=== PATIENT | male | born 1960 | race African-American/Black ===

== ENCOUNTER 2016-11-06 21:37 | Inpatient (IN) | payer MEDICARE, MEDICAID ==
[~2016-11-06] VITALS: Ht 188 cm; Wt 224.5 kg
[2016-11-06 19:00] VITALS: BP 139/89
[2016-11-06 20:15] VITALS: BP 130/80
[2016-11-06] MEDS ORDERED: ACETAMINOPHEN 325MG TABLET PO PRN (22:45)
[2016-11-06] MEDS ORDERED: CARVEDILOL 25MG TABLET PO SCH (23:01)
[2016-11-06] MEDS ORDERED: NA PHOS,M-B/NA PHOS,DI-BA ENEMA 118ML PR PRN (23:15)
[2016-11-06] MEDS ORDERED: ONDANSETRON HCL 4MG TABLET PO PRN (23:15)
[2016-11-06] MEDS ORDERED: NON FORMULARY PATIENT HOME MED EA XX SCH (23:30)
[2016-11-06] MEDS ORDERED: ZOLPIDEM TARTRATE 5MG TABLET PO PRN (23:30)
[2016-11-07] MEDS ORDERED: DILTIAZEM HCL 30MG TABLET PO PRN (00:38)
[2016-11-07] MEDS ORDERED: HYDRALAZINE HCL 10MG TABLET PO PRN (00:39)
[2016-11-07] MEDS ORDERED: DEXTROSE 50% WATER 50ML SYRINGE IV PRN (00:43)
[2016-11-07] MEDS ORDERED: POLYETHYLENE GLYCOL 3350 (17GM) 1 DOSE PACK PO PRN (01:00)
[2016-11-07] MEDS: BLOOD SUGAR DIAGNOSTIC STRIP TEST SCH ×4 (06:29→21:00)
[2016-11-07] MEDS: SUCRALFATE 1G TABLET PO SCH ×4 (06:30→22:17)
[2016-11-07] MEDS: INSULIN LISPRO 100 UNITS/ML SUBCUT SCH ×4 (06:33→22:26)
[2016-11-07 06:48] LABS: HEMATOCRIT. 28.5 % (42.0-52.0); HEMOGLOBIN. 8.9 g/dL (14.0-18.0); MEAN CORPUSCULAR HEMOGLOBIN 24.3 pg (28.0-32.0); MEAN CORPUSCULAR VOLUME 78.3 fL (80.0-94.0); MEAN PLATELET VOLUME 8.1 fl (7.4-10.4); PLATELET 319 x1000/uL (130-400); RED BLOOD CELL COUNT 3.64 mill/uL (4.7-6.1)
[2016-11-07 07:18] LABS: CARBON DIOXIDE 35 mEq/L (21-32); CHLORIDE 98 mEq/L (98-107)
[2016-11-07 07:21] LABS: PREALBUMIN 10.7 mg/dL (20.0-40.0)
[2016-11-07 08:18] VITALS: BP 169/97
[2016-11-07] MEDS ORDERED: LISINOPRIL 10MG TABLET PO SCH (09:00)
[2016-11-07] MEDS ORDERED: APIXABAN 5 MG TABLET PO SCH (09:00)
[2016-11-07] MEDS: AMIODARONE HCL 200 MG TABLET PO SCH ×2 (09:55→22:18)
[2016-11-07] MEDS: MAGNESIUM OXIDE 400MG TABLET PO SCH (09:56)
[2016-11-07] MEDS: FUROSEMIDE 40MG TABLET PO SCH ×2 (09:56→18:56)
[2016-11-07] MEDS: SPIRONOLACTONE 25MG TABLET PO SCH (09:56)
[2016-11-07] MEDS: CARVEDILOL 25MG TABLET PO SCH ×2 (09:56→22:18)
[2016-11-07] MEDS: LIDOCAINE 5% PATCH TOP SCH (10:12)
[2016-11-07] MEDS: HYDROCODONE/ACETAMINOPHEN 5/325MG TABLET PO PRN (10:17)
[2016-11-07] MEDS ORDERED: IPRATROPIUM/ALBUTEROL 0.5-3(2.5)MG/3ML NEB HHN PRN (13:30)
[2016-11-07] MEDS ORDERED: ALPRAZOLAM 0.5 MG TABLET PO PRN (13:30)
[2016-11-07 15:28] LABS: BG BASE EXCESS 7.6 mmol/L (-2.0-2.0); BG CARBOXYHEMOGLOBIN 0.1 % (0.5-1.5); BG DEOXYHEMOGLOBIN 6.3 % (0.0-5.0); BG FRACTION INSPIRED OXYGEN 28; BG HCO3 ACT 34.1 mmol/L (22.0-26.0); BG METHEMOGLOBIN 0.3 % (0.0-1.5); BG OXYGEN SATURATION 93.7 % (92.0-98.5); BG OXYHEMOGLOBIN 93.3 % (94.0-97.0); BG PCO2 59.2 mmHg (35.0-45.0); BG PH 7.378 (7.350-7.450); BG PO2 74.7 mmHg (75.0-100.0); BG SAMPLE SITE LEFT RADIAL; BG TOTAL HEMOGLOBIN 9.9 g/dL (12.0-18.0); BG VENT MODE NASAL CANNULA
[2016-11-07 16:56] LABS: PLATELET ESTIMATE NORMAL
[2016-11-07] MEDS: APIXABAN 5 MG TABLET PO SCH (18:55)
[2016-11-07 20:00] VITALS: BP 161/98
[2016-11-07] MEDS: IPRATROPIUM/ALBUTEROL 0.5-3(2.5)MG/3ML NEB HHN SCH (21:29)
[2016-11-07] MEDS: BUDESONIDE 0.5MG/2ML NEB HHN SCH (21:29)
[2016-11-07] MEDS: LISINOPRIL 20MG TABLET PO SCH (22:17)
[2016-11-07] MEDS: RISPERIDONE 0.5MG TABLET PO SCH (22:18)
[2016-11-07] MEDS: INSULIN DETEMIR UD 100 UNITS/ML SYR SUBCUT SCH (22:27)
[2016-11-08] MEDS: IPRATROPIUM/ALBUTEROL 0.5-3(2.5)MG/3ML NEB HHN SCH ×4 (01:49→20:29)
[2016-11-08] MEDS: BLOOD SUGAR DIAGNOSTIC STRIP TEST SCH ×4 (05:31→21:57)
[2016-11-08] MEDS: SUCRALFATE 1G TABLET PO SCH ×4 (05:35→21:53)
[2016-11-08] MEDS: PANTOPRAZOLE 40MG DR TABLET PO SCH (05:35)
[2016-11-08 07:08] LABS: BASOPHILS % 1.5 % (0.0-2.0); EOSINOPHILS % 4.9 % (0.0-5.0); HEMATOCRIT. 27.3 % (42.0-52.0); HEMOGLOBIN. 8.6 g/dL (14.0-18.0); LYMPHOCYTES % 31.3 % (20.0-50.0); MEAN CORPUSCULAR HEMOGLOBIN 24.3 pg (28.0-32.0); MONOCYTES % 14.4 % (2.0-8.0); NEUTROPHILS % 47.9 % (40.0-76.0); PLATELET 300 x1000/uL (130-400); RED BLOOD CELL COUNT 3.54 mill/uL (4.7-6.1); RED CELL DISTRIBUTION WIDTH 19.1 % (11.6-14.6)
[2016-11-08] MEDS: INSULIN LISPRO 100 UNITS/ML SUBCUT SCH ×4 (07:09→21:56)
[2016-11-08 07:19] LABS: CARBON DIOXIDE 35 mEq/L (21-32); CHLORIDE 100 mEq/L (98-107); TOTAL IRON BINDING CAPACITY 349 ug/dL (250-450)
[2016-11-08 08:00] VITALS: BP 157/96
[2016-11-08] MEDS: LISINOPRIL 20MG TABLET PO SCH ×2 (08:39→21:53)
[2016-11-08] MEDS: MAGNESIUM OXIDE 400MG TABLET PO SCH (08:40)
[2016-11-08] MEDS: APIXABAN 5 MG TABLET PO SCH ×2 (08:40→17:32)
[2016-11-08] MEDS: FUROSEMIDE 40MG TABLET PO SCH ×2 (08:40→17:32)
[2016-11-08] MEDS: AMIODARONE HCL 200 MG TABLET PO SCH ×2 (08:41→21:53)
[2016-11-08] MEDS: CARVEDILOL 25MG TABLET PO SCH ×2 (08:41→21:53)
[2016-11-08] MEDS: SPIRONOLACTONE 25MG TABLET PO SCH (08:41)
[2016-11-08] MEDS: LIDOCAINE 5% PATCH TOP SCH (08:43)
[2016-11-08] MEDS: BUDESONIDE 0.5MG/2ML NEB HHN SCH ×2 (12:16→20:29)
[2016-11-08] MEDS: FERROUS SULFATE 325MG TABLET PO SCH ×2 (12:57→17:32)
[2016-11-08 20:00] VITALS: BP 177/96
[2016-11-08] MEDS: RISPERIDONE 0.5MG TABLET PO SCH (21:53)
[2016-11-08] MEDS: INSULIN DETEMIR UD 100 UNITS/ML SYR SUBCUT SCH (21:57)
[2016-11-08 22:35] VITALS: BP 159/94
[2016-11-08] MEDS: HYDROCODONE/ACETAMINOPHEN 5/325MG TABLET PO PRN (22:35)
[2016-11-09] MEDS: IPRATROPIUM/ALBUTEROL 0.5-3(2.5)MG/3ML NEB HHN SCH ×4 (03:01→21:02)
[2016-11-09] MEDS: PANTOPRAZOLE 40MG DR TABLET PO SCH (06:12)
[2016-11-09] MEDS: SUCRALFATE 1G TABLET PO SCH ×4 (06:12→22:00)
[2016-11-09] MEDS: BLOOD SUGAR DIAGNOSTIC STRIP TEST SCH ×4 (06:39→21:00)
[2016-11-09] MEDS: BUDESONIDE 0.5MG/2ML NEB HHN SCH ×2 (07:22→21:02)
[2016-11-09] MEDS: INSULIN LISPRO 100 UNITS/ML SUBCUT SCH ×4 (07:24→22:02)
[2016-11-09 08:00] VITALS: BP 141/96
[2016-11-09 08:03] LABS: HEMATOCRIT. 28.8 % (42.0-52.0); HEMOGLOBIN. 8.9 g/dL (14.0-18.0); MEAN CORPUSCULAR VOLUME 77.3 fL (80.0-94.0); MEAN PLATELET VOLUME 8.1 fl (7.4-10.4); PLATELET 300 x1000/uL (130-400); RED BLOOD CELL COUNT 3.73 mill/uL (4.7-6.1); RED CELL DISTRIBUTION WIDTH 19.2 % (11.6-14.6)
[2016-11-09 08:07] LABS: CARBON DIOXIDE 36 mEq/L (21-32); CHLORIDE 99 mEq/L (98-107); HDL CHOLESTEROL 34 mg/dL (40-59); LDL CHOLESTEROL 34 mg/dL (5-100); PHOSPHORUS 4.8 mg/dL (2.5-4.9)
[2016-11-09] MEDS: LISINOPRIL 20MG TABLET PO SCH ×2 (08:50→22:00)
[2016-11-09] MEDS: FUROSEMIDE 40MG TABLET PO SCH ×2 (08:50→17:43)
[2016-11-09] MEDS: SPIRONOLACTONE 25MG TABLET PO SCH (08:50)
[2016-11-09] MEDS: MAGNESIUM OXIDE 400MG TABLET PO SCH (08:51)
[2016-11-09] MEDS: CARVEDILOL 25MG TABLET PO SCH ×2 (08:51→22:00)
[2016-11-09] MEDS: APIXABAN 5 MG TABLET PO SCH ×2 (08:51→17:43)
[2016-11-09] MEDS: AMIODARONE HCL 200 MG TABLET PO SCH ×2 (08:51→22:00)
[2016-11-09] MEDS: LIDOCAINE 5% PATCH TOP SCH ×2 (08:54→08:55)
[2016-11-09] MEDS ORDERED: IRON SUCROSE COMPLEX 100 MG in SODIUM CHLORIDE 0.9% 100 ML IV SCH (09:00)
[2016-11-09] MEDS: AMLODIPINE 2.5MG TABLET PO SCH (09:04)
[2016-11-09 09:05] LABS: FOLIC ACID (FOLATE) SERUM 8.3 ng/mL (>5.38)
[2016-11-09 09:41] LABS: PROSTRATE SPECIFIC AG TOTAL 1.7 ng/mL (0.0-4.0)
[2016-11-09 09:48] LABS: BG BASE EXCESS 3.1 mmol/L (-2.0-2.0); BG CARBOXYHEMOGLOBIN 0.6 % (0.5-1.5); BG DEOXYHEMOGLOBIN 7.3 % (0.0-5.0); BG FRACTION INSPIRED OXYGEN 21; BG HCO3 ACT 29.1 mmol/L (22.0-26.0); BG METHEMOGLOBIN 0.2 % (0.0-1.5); BG OXYGEN SATURATION 92.6 % (92.0-98.5); BG OXYHEMOGLOBIN 91.9 % (94.0-97.0); BG PH 7.366 (7.350-7.450); BG PO2 71.8 mmHg (75.0-100.0); BG SAMPLE SITE RIGHT RADIAL; BG TOTAL HEMOGLOBIN 9.7 g/dL (12.0-18.0); BG VENT MODE ROOM AIR
[2016-11-09 10:56] LABS: PLATELET ESTIMATE NORMAL
[2016-11-09] MEDS: HYDROCODONE/ACETAMINOPHEN 5/325MG TABLET PO PRN (11:55)
[2016-11-09 20:00] VITALS: BP 159/101
[2016-11-09] MEDS: RISPERIDONE 0.5MG TABLET PO SCH (22:00)
[2016-11-09] MEDS: IRON SUCROSE COMPLEX 100 MG in SODIUM CHLORIDE 0.9% 100 ML IV SCH (22:01)
[2016-11-09] MEDS: INSULIN DETEMIR UD 100 UNITS/ML SYR SUBCUT SCH (22:03)
[2016-11-10] MEDS: IPRATROPIUM/ALBUTEROL 0.5-3(2.5)MG/3ML NEB HHN SCH ×5 (01:27→20:16)
[2016-11-10] MEDS: HYDROCODONE/ACETAMINOPHEN 5/325MG TABLET PO PRN ×3 (03:58→15:35)
[2016-11-10] MEDS: PANTOPRAZOLE 40MG DR TABLET PO SCH (06:29)
[2016-11-10] MEDS: SUCRALFATE 1G TABLET PO SCH ×4 (06:29→22:01)
[2016-11-10] MEDS: BLOOD SUGAR DIAGNOSTIC STRIP TEST SCH ×4 (06:29→21:00)
[2016-11-10 08:00] VITALS: BP 149/86
[2016-11-10] MEDS: INSULIN LISPRO 100 UNITS/ML SUBCUT SCH ×4 (09:00→22:19)
[2016-11-10] MEDS: BUDESONIDE 0.5MG/2ML NEB HHN SCH (09:10)
[2016-11-10] MEDS: SPIRONOLACTONE 25MG TABLET PO SCH (09:30)
[2016-11-10] MEDS: CARVEDILOL 25MG TABLET PO SCH ×2 (09:31→22:02)
[2016-11-10] MEDS: AMLODIPINE 2.5MG TABLET PO SCH ×2 (09:31→22:00)
[2016-11-10] MEDS: APIXABAN 5 MG TABLET PO SCH ×2 (09:31→16:51)
[2016-11-10] MEDS: FUROSEMIDE 40MG TABLET PO SCH ×2 (09:31→16:51)
[2016-11-10] MEDS: AMIODARONE HCL 200 MG TABLET PO SCH ×2 (09:31→22:01)
[2016-11-10] MEDS: LISINOPRIL 20MG TABLET PO SCH ×2 (09:31→22:02)
[2016-11-10] MEDS: MAGNESIUM OXIDE 400MG TABLET PO SCH (09:31)
[2016-11-10] MEDS: LIDOCAINE 5% PATCH TOP SCH ×2 (09:32→09:33)
[2016-11-10] MEDS: TERBINAFINE HCL 1% CREAM 30GM TOP SCH (16:51)
[2016-11-10 20:00] VITALS: BP 174/87
[2016-11-10] MEDS: RISPERIDONE 0.5MG TABLET PO SCH (22:01)
[2016-11-10] MEDS: IRON SUCROSE COMPLEX 100 MG in SODIUM CHLORIDE 0.9% 100 ML IV SCH (22:03)
[2016-11-10] MEDS: INSULIN DETEMIR UD 100 UNITS/ML SYR SUBCUT SCH (22:21)
[2016-11-11] MEDS: IPRATROPIUM/ALBUTEROL 0.5-3(2.5)MG/3ML NEB HHN SCH ×4 (02:16→20:35)
[2016-11-11] MEDS: PANTOPRAZOLE 40MG DR TABLET PO SCH (06:15)
[2016-11-11] MEDS: SUCRALFATE 1G TABLET PO SCH ×4 (06:15→21:00)
[2016-11-11] MEDS: BLOOD SUGAR DIAGNOSTIC STRIP TEST SCH ×4 (06:16→21:01)
[2016-11-11] MEDS: HYDROCODONE/ACETAMINOPHEN 5/325MG TABLET PO PRN (07:34)
[2016-11-11 08:00] VITALS: BP 142/82
[2016-11-11 08:04] LABS: HEMATOCRIT. 28.2 % (42.0-52.0); HEMOGLOBIN. 8.7 g/dL (14.0-18.0); MEAN CORPUSCULAR VOLUME 77.6 fL (80.0-94.0); MEAN PLATELET VOLUME 8.2 fl (7.4-10.4); PLATELET 298 x1000/uL (130-400); RED BLOOD CELL COUNT 3.63 mill/uL (4.7-6.1); RED CELL DISTRIBUTION WIDTH 19.2 % (11.6-14.6)
[2016-11-11 08:36] LABS: CARBON DIOXIDE 34 mEq/L (21-32); CHLORIDE 99 mEq/L (98-107)
[2016-11-11] MEDS: INSULIN LISPRO 100 UNITS/ML SUBCUT SCH ×4 (09:00→21:15)
[2016-11-11] MEDS: SPIRONOLACTONE 25MG TABLET PO SCH (09:07)
[2016-11-11] MEDS: FUROSEMIDE 40MG TABLET PO SCH ×2 (09:08→17:07)
[2016-11-11] MEDS: AMLODIPINE 2.5MG TABLET PO SCH ×2 (09:08→21:00)
[2016-11-11] MEDS: AMIODARONE HCL 200 MG TABLET PO SCH ×2 (09:08→21:00)
[2016-11-11] MEDS: CARVEDILOL 25MG TABLET PO SCH ×2 (09:08→22:28)
[2016-11-11] MEDS: APIXABAN 5 MG TABLET PO SCH ×2 (09:08→17:06)
[2016-11-11] MEDS: LISINOPRIL 20MG TABLET PO SCH ×2 (09:09→21:00)
[2016-11-11] MEDS: MAGNESIUM OXIDE 400MG TABLET PO SCH (09:09)
[2016-11-11] MEDS: TERBINAFINE HCL 1% CREAM 30GM TOP SCH ×2 (09:11→17:06)
[2016-11-11] MEDS: LIDOCAINE 5% PATCH TOP SCH ×2 (09:12→09:13)
[2016-11-11 10:01] LABS: PLATELET ESTIMATE NORMAL
[2016-11-11] MEDS: CYANOCOBALAMIN 1000MCG/ML VIAL IM SCH (11:58)
[2016-11-11 20:56] VITALS: BP 141/93
[2016-11-11] MEDS: RISPERIDONE 0.5MG TABLET PO SCH (21:00)
[2016-11-11] MEDS: IRON SUCROSE COMPLEX 100 MG in SODIUM CHLORIDE 0.9% 100 ML IV SCH (21:14)
[2016-11-11] MEDS: INSULIN DETEMIR UD 100 UNITS/ML SYR SUBCUT SCH (21:17)
[2016-11-12] MEDS: IPRATROPIUM/ALBUTEROL 0.5-3(2.5)MG/3ML NEB HHN SCH ×4 (01:30→20:54)
[2016-11-12] MEDS ORDERED: HYDROCODONE/ACETAMINOPHEN 5/325MG TABLET PO PRN (02:45)
[2016-11-12] MEDS ORDERED: ALPRAZOLAM 0.5 MG TABLET PO PRN (05:30)
[2016-11-12] MEDS: INSULIN LISPRO 100 UNITS/ML SUBCUT SCH ×4 (05:51→21:00)
[2016-11-12] MEDS: BLOOD SUGAR DIAGNOSTIC STRIP TEST SCH ×4 (05:51→21:00)
[2016-11-12] MEDS: PANTOPRAZOLE 40MG DR TABLET PO SCH (05:58)
[2016-11-12] MEDS: SUCRALFATE 1G TABLET PO SCH ×4 (05:58→22:18)
[2016-11-12 07:34] VITALS: BP 162/101
[2016-11-12 08:00] VITALS: BP 162/101
[2016-11-12] MEDS: MAGNESIUM OXIDE 400MG TABLET PO SCH (09:53)
[2016-11-12] MEDS: FUROSEMIDE 40MG TABLET PO SCH ×2 (09:53→16:47)
[2016-11-12] MEDS: AMIODARONE HCL 200 MG TABLET PO SCH ×2 (09:53→22:21)
[2016-11-12] MEDS: APIXABAN 5 MG TABLET PO SCH ×2 (09:53→16:47)
[2016-11-12] MEDS: LISINOPRIL 20MG TABLET PO SCH ×2 (09:54→22:22)
[2016-11-12] MEDS: CARVEDILOL 25MG TABLET PO SCH ×2 (09:54→22:20)
[2016-11-12] MEDS: AMLODIPINE 2.5MG TABLET PO SCH (09:54)
[2016-11-12] MEDS: SPIRONOLACTONE 25MG TABLET PO SCH (09:54)
[2016-11-12] MEDS: CYANOCOBALAMIN 1000MCG/ML VIAL IM SCH (09:54)
[2016-11-12] MEDS: TERBINAFINE HCL 1% CREAM 30GM TOP SCH ×2 (09:56→16:47)
[2016-11-12] MEDS: LIDOCAINE 5% PATCH TOP SCH ×2 (09:57→09:58)
[2016-11-12] MEDS: HYDROCODONE/ACETAMINOPHEN 5/325MG TABLET PO PRN ×2 (10:00→16:50)
[2016-11-12] MEDS: DOCUSATE SODIUM 100MG CAPSULE PO PRN (10:11)
[2016-11-12 16:30] VITALS: BP 160/92
[2016-11-12 17:12] LABS: 25-HYDROXY VITAMIN D3 3.3 ng/mL (.)
[2016-11-12 20:00] VITALS: BP 130/74
[2016-11-12] MEDS: RISPERIDONE 0.5MG TABLET PO SCH (22:17)
[2016-11-12] MEDS: IRON SUCROSE COMPLEX 100 MG in SODIUM CHLORIDE 0.9% 100 ML IV SCH (22:17)
[2016-11-12] MEDS: AMLODIPINE 5MG TABLET PO SCH (22:19)
[2016-11-12] MEDS: INSULIN DETEMIR UD 100 UNITS/ML SYR SUBCUT SCH (22:36)
[2016-11-13] MEDS: IPRATROPIUM/ALBUTEROL 0.5-3(2.5)MG/3ML NEB HHN SCH ×4 (02:14→21:15)
[2016-11-13] MEDS: BLOOD SUGAR DIAGNOSTIC STRIP TEST SCH ×4 (05:49→21:59)
[2016-11-13] MEDS: SUCRALFATE 1G TABLET PO SCH ×4 (06:02→21:57)
[2016-11-13] MEDS: PANTOPRAZOLE 40MG DR TABLET PO SCH (06:02)
[2016-11-13] MEDS: INSULIN LISPRO 100 UNITS/ML SUBCUT SCH ×4 (06:07→21:00)
[2016-11-13 08:01] VITALS: BP 136/84
[2016-11-13] MEDS: CYANOCOBALAMIN 1000MCG/ML VIAL IM SCH (10:07)
[2016-11-13] MEDS: AMIODARONE HCL 200 MG TABLET PO SCH ×2 (10:07→21:57)
[2016-11-13] MEDS: CARVEDILOL 25MG TABLET PO SCH ×2 (10:08→21:58)
[2016-11-13] MEDS: MAGNESIUM OXIDE 400MG TABLET PO SCH (10:09)
[2016-11-13] MEDS: SPIRONOLACTONE 25MG TABLET PO SCH (10:09)
[2016-11-13] MEDS: FUROSEMIDE 40MG TABLET PO SCH ×2 (10:09→16:40)
[2016-11-13] MEDS: AMLODIPINE 5MG TABLET PO SCH ×2 (10:10→22:01)
[2016-11-13] MEDS: APIXABAN 5 MG TABLET PO SCH ×2 (10:10→16:40)
[2016-11-13] MEDS: LISINOPRIL 20MG TABLET PO SCH ×2 (10:10→21:58)
[2016-11-13] MEDS: LIDOCAINE 5% PATCH TOP SCH ×2 (10:12)
[2016-11-13] MEDS: TERBINAFINE HCL 1% CREAM 30GM TOP SCH ×2 (10:21→16:48)
[2016-11-13 13:50] LABS: BASOPHILS % 1.3 % (0.0-2.0); EOSINOPHILS % 5.6 % (0.0-5.0); HEMATOCRIT. 30.1 % (42.0-52.0); HEMOGLOBIN. 9.2 g/dL (14.0-18.0); LYMPHOCYTES % 22.9 % (20.0-50.0); MEAN CORPUSCULAR HEMOGLOBIN 23.9 pg (28.0-32.0); MEAN CORPUSCULAR VOLUME 78.8 fL (80.0-94.0); MONOCYTES % 9.4 % (2.0-8.0); NEUTROPHILS % 60.8 % (40.0-76.0); PLATELET 275 x1000/uL (130-400); RED BLOOD CELL COUNT 3.83 mill/uL (4.7-6.1); RED CELL DISTRIBUTION WIDTH 19.7 % (11.6-14.6)
[2016-11-13 14:23] LABS: CARBON DIOXIDE 35 mEq/L (21-32); CHLORIDE 97 mEq/L (98-107)
[2016-11-13 19:00] VITALS: BP 131/92
[2016-11-13] MEDS ORDERED: IRON SUCROSE COMPLEX 100 MG/5 ML ML IV ONE (21:21)
[2016-11-13] MEDS: IRON SUCROSE COMPLEX 100 MG in SODIUM CHLORIDE 0.9% 100 ML IV SCH (22:00)
[2016-11-13] MEDS: RISPERIDONE 0.5MG TABLET PO SCH (22:01)
[2016-11-13] MEDS: INSULIN DETEMIR UD 100 UNITS/ML SYR SUBCUT SCH (22:11)
[2016-11-14] MEDS: IPRATROPIUM/ALBUTEROL 0.5-3(2.5)MG/3ML NEB HHN SCH ×4 (01:18→21:01)
[2016-11-14] MEDS: PANTOPRAZOLE 40MG DR TABLET PO SCH (06:23)
[2016-11-14] MEDS: SUCRALFATE 1G TABLET PO SCH ×4 (06:23→20:32)
[2016-11-14] MEDS: BLOOD SUGAR DIAGNOSTIC STRIP TEST SCH ×4 (06:30→21:00)
[2016-11-14 07:00] VITALS: BP 156/85
[2016-11-14 07:13] LABS: BASOPHILS % 1.3 % (0.0-2.0); EOSINOPHILS % 6.9 % (0.0-5.0); HEMATOCRIT. 29.9 % (42.0-52.0); HEMOGLOBIN. 9.3 g/dL (14.0-18.0); LYMPHOCYTES % 24.6 % (20.0-50.0); MEAN CORPUSCULAR HEMOGLOBIN 24.4 pg (28.0-32.0); MEAN CORPUSCULAR VOLUME 78.6 fL (80.0-94.0); MONOCYTES % 13.2 % (2.0-8.0); PLATELET 280 x1000/uL (130-400); RED BLOOD CELL COUNT 3.81 mill/uL (4.7-6.1); RED CELL DISTRIBUTION WIDTH 20.1 % (11.6-14.6)
[2016-11-14 07:33] LABS: CARBON DIOXIDE 36 mEq/L (21-32); CHLORIDE 100 mEq/L (98-107)
[2016-11-14] MEDS: INSULIN LISPRO 100 UNITS/ML SUBCUT SCH ×4 (07:41→22:48)
[2016-11-14] MEDS: AMIODARONE HCL 200 MG TABLET PO SCH ×2 (09:12→20:34)
[2016-11-14] MEDS: CARVEDILOL 25MG TABLET PO SCH ×2 (09:12→20:33)
[2016-11-14] MEDS: AMLODIPINE 5MG TABLET PO SCH ×2 (09:12→20:34)
[2016-11-14] MEDS: LISINOPRIL 20MG TABLET PO SCH ×2 (09:12→22:42)
[2016-11-14] MEDS: MAGNESIUM OXIDE 400MG TABLET PO SCH (09:13)
[2016-11-14] MEDS: CYANOCOBALAMIN 1000MCG/ML VIAL IM SCH (09:13)
[2016-11-14] MEDS: SPIRONOLACTONE 25MG TABLET PO SCH (09:13)
[2016-11-14] MEDS: TERBINAFINE HCL 1% CREAM 30GM TOP SCH ×2 (09:14→17:06)
[2016-11-14] MEDS: APIXABAN 5 MG TABLET PO SCH ×2 (09:18→17:05)
[2016-11-14] MEDS: FUROSEMIDE 40MG TABLET PO SCH ×2 (09:18→17:05)
[2016-11-14] MEDS: LIDOCAINE 5% PATCH TOP SCH ×2 (09:20)
[2016-11-14 20:00] VITALS: BP 170/88
[2016-11-14] MEDS: RISPERIDONE 0.5MG TABLET PO SCH (20:34)
[2016-11-14] MEDS: INSULIN DETEMIR UD 100 UNITS/ML SYR SUBCUT SCH (22:49)
[2016-11-15] VITALS: BP 138/80
[2016-11-15] MEDS: IPRATROPIUM/ALBUTEROL 0.5-3(2.5)MG/3ML NEB HHN SCH ×3 (00:40→20:53)
[2016-11-15] MEDS: PANTOPRAZOLE 40MG DR TABLET PO SCH (06:23)
[2016-11-15] MEDS: SUCRALFATE 1G TABLET PO SCH ×4 (06:23→22:12)
[2016-11-15] MEDS: BLOOD SUGAR DIAGNOSTIC STRIP TEST SCH ×4 (06:24→21:00)
[2016-11-15 07:42] VITALS: BP 164/92
[2016-11-15] MEDS: INSULIN LISPRO 100 UNITS/ML SUBCUT SCH ×4 (09:00→21:00)
[2016-11-15] MEDS: APIXABAN 5 MG TABLET PO SCH ×2 (10:17→17:45)
[2016-11-15] MEDS: LISINOPRIL 20MG TABLET PO SCH ×2 (10:17→22:13)
[2016-11-15] MEDS: FUROSEMIDE 40MG TABLET PO SCH ×2 (10:18→17:45)
[2016-11-15] MEDS: AMLODIPINE 5MG TABLET PO SCH ×2 (10:19→22:13)
[2016-11-15] MEDS: SPIRONOLACTONE 25MG TABLET PO SCH (10:20)
[2016-11-15] MEDS: AMIODARONE HCL 200 MG TABLET PO SCH ×2 (10:20→22:12)
[2016-11-15] MEDS: CARVEDILOL 25MG TABLET PO SCH ×2 (10:20→22:13)
[2016-11-15] MEDS: MAGNESIUM OXIDE 400MG TABLET PO SCH (10:21)
[2016-11-15] MEDS: LIDOCAINE 5% PATCH TOP SCH ×2 (10:22→12:24)
[2016-11-15] MEDS: TERBINAFINE HCL 1% CREAM 30GM TOP SCH ×2 (12:18→17:47)
[2016-11-15] MEDS: HYDRALAZINE HCL 50MG TABLET PO SCH ×2 (15:56→23:44)
[2016-11-15] MEDS: DOCUSATE SODIUM 100MG CAPSULE PO PRN (17:45)
[2016-11-15 20:00] VITALS: BP 147/87
[2016-11-15] MEDS: RISPERIDONE 0.5MG TABLET PO SCH (22:13)
[2016-11-15] MEDS: INSULIN DETEMIR UD 100 UNITS/ML SYR SUBCUT SCH (22:35)
[2016-11-16] MEDS: IPRATROPIUM/ALBUTEROL 0.5-3(2.5)MG/3ML NEB HHN SCH ×4 (02:15→21:51)
[2016-11-16] MEDS: SUCRALFATE 1G TABLET PO SCH ×4 (06:09→21:53)
[2016-11-16] MEDS: HYDRALAZINE HCL 50MG TABLET PO SCH ×3 (06:10→23:39)
[2016-11-16] MEDS: BLOOD SUGAR DIAGNOSTIC STRIP TEST SCH ×4 (06:10→21:51)
[2016-11-16] MEDS: PANTOPRAZOLE 40MG DR TABLET PO SCH (06:10)
[2016-11-16 08:30] VITALS: BP 152/88
[2016-11-16] MEDS: INSULIN LISPRO 100 UNITS/ML SUBCUT SCH ×4 (09:00→22:00)
[2016-11-16] MEDS: MAGNESIUM OXIDE 400MG TABLET PO SCH (09:00)
[2016-11-16] MEDS: AMLODIPINE 5MG TABLET PO SCH ×2 (09:26→21:53)
[2016-11-16] MEDS: CARVEDILOL 25MG TABLET PO SCH ×2 (09:26→21:56)
[2016-11-16] MEDS: LISINOPRIL 20MG TABLET PO SCH ×2 (09:26→21:52)
[2016-11-16] MEDS: ERGOCALCIFEROL 50000UNITS CAPSULE PO SCH (09:26)
[2016-11-16] MEDS: SPIRONOLACTONE 25MG TABLET PO SCH (09:27)
[2016-11-16] MEDS: APIXABAN 5 MG TABLET PO SCH ×2 (09:27→16:32)
[2016-11-16] MEDS: FUROSEMIDE 40MG TABLET PO SCH ×2 (09:27→16:33)
[2016-11-16] MEDS: AMIODARONE HCL 200 MG TABLET PO SCH ×2 (09:27→21:52)
[2016-11-16] MEDS: LIDOCAINE 5% PATCH TOP SCH ×2 (09:29)
[2016-11-16] MEDS: TERBINAFINE HCL 1% CREAM 30GM TOP SCH ×2 (11:46→16:28)
[2016-11-16 20:00] VITALS: BP 145/96
[2016-11-16] MEDS: RISPERIDONE 0.5MG TABLET PO SCH (21:53)
[2016-11-16] MEDS: INSULIN DETEMIR UD 100 UNITS/ML SYR SUBCUT SCH (22:01)
[2016-11-17] MEDS: IPRATROPIUM/ALBUTEROL 0.5-3(2.5)MG/3ML NEB HHN SCH ×4 (02:58→21:04)
[2016-11-17 06:06] LABS: HEMOGLOBIN. 9.5 g/dL (14.0-18.0); MEAN CORPUSCULAR HEMOGLOBIN 24.6 pg (28.0-32.0); MEAN CORPUSCULAR VOLUME 77.9 fL (80.0-94.0); MEAN PLATELET VOLUME 7.9 fl (7.4-10.4); PLATELET 237 x1000/uL (130-400); RED BLOOD CELL COUNT 3.85 mill/uL (4.7-6.1); RED CELL DISTRIBUTION WIDTH 21.7 % (11.6-14.6)
[2016-11-17] MEDS: SUCRALFATE 1G TABLET PO SCH ×4 (06:08→21:57)
[2016-11-17] MEDS: PANTOPRAZOLE 40MG DR TABLET PO SCH (06:08)
[2016-11-17] MEDS: BLOOD SUGAR DIAGNOSTIC STRIP TEST SCH ×4 (06:08→21:58)
[2016-11-17] MEDS: INSULIN LISPRO 100 UNITS/ML SUBCUT SCH ×4 (06:09→21:59)
[2016-11-17 06:10] LABS: CARBON DIOXIDE 35 mEq/L (21-32); CHLORIDE 101 mEq/L (98-107)
[2016-11-17 07:45] VITALS: BP 139/90
[2016-11-17] MEDS: AMLODIPINE 5MG TABLET PO SCH ×2 (08:59→21:57)
[2016-11-17] MEDS: FUROSEMIDE 40MG TABLET PO SCH ×2 (09:00→16:59)
[2016-11-17] MEDS: LISINOPRIL 20MG TABLET PO SCH ×2 (09:00→21:56)
[2016-11-17] MEDS: SPIRONOLACTONE 25MG TABLET PO SCH (09:00)
[2016-11-17] MEDS: MAGNESIUM OXIDE 400MG TABLET PO SCH (09:00)
[2016-11-17] MEDS: AMIODARONE HCL 200 MG TABLET PO SCH ×2 (09:00→21:57)
[2016-11-17] MEDS: APIXABAN 5 MG TABLET PO SCH ×2 (09:01→16:59)
[2016-11-17] MEDS: CARVEDILOL 25MG TABLET PO SCH ×2 (09:01→21:57)
[2016-11-17] MEDS: LIDOCAINE 5% PATCH TOP SCH ×2 (09:07)
[2016-11-17] MEDS: TERBINAFINE HCL 1% CREAM 30GM TOP SCH ×2 (09:14→17:02)
[2016-11-17 14:08] VITALS: BP 141/84
[2016-11-17] MEDS: HYDRALAZINE HCL 50MG TABLET PO SCH ×2 (14:08→21:56)
[2016-11-17 20:01] VITALS: BP 146/76
[2016-11-17] MEDS: RISPERIDONE 0.5MG TABLET PO SCH (21:57)
[2016-11-17] MEDS: INSULIN DETEMIR UD 100 UNITS/ML SYR SUBCUT SCH (21:59)
[2016-11-18] MEDS: IPRATROPIUM/ALBUTEROL 0.5-3(2.5)MG/3ML NEB HHN SCH ×4 (03:45→21:16)
[2016-11-18] MEDS: HYDROCODONE/ACETAMINOPHEN 5/325MG TABLET PO PRN (03:50)
[2016-11-18] MEDS ORDERED: ALPRAZOLAM 0.5 MG TABLET PO PRN (04:45)
[2016-11-18] MEDS: HYDRALAZINE HCL 50MG TABLET PO SCH ×3 (06:00→21:24)
[2016-11-18] MEDS: INSULIN LISPRO 100 UNITS/ML SUBCUT SCH ×4 (06:03→21:26)
[2016-11-18] MEDS: BLOOD SUGAR DIAGNOSTIC STRIP TEST SCH ×4 (06:03→21:25)
[2016-11-18] MEDS: PANTOPRAZOLE 40MG DR TABLET PO SCH (06:04)
[2016-11-18] MEDS: SUCRALFATE 1G TABLET PO SCH ×4 (06:04→21:22)
[2016-11-18 08:00] VITALS: BP 146/87
[2016-11-18] MEDS: CARVEDILOL 25MG TABLET PO SCH ×2 (08:38→21:24)
[2016-11-18] MEDS: SPIRONOLACTONE 25MG TABLET PO SCH (08:38)
[2016-11-18] MEDS: AMIODARONE HCL 200 MG TABLET PO SCH ×2 (08:38→21:23)
[2016-11-18] MEDS: FUROSEMIDE 40MG TABLET PO SCH ×2 (08:38→16:56)
[2016-11-18] MEDS: MAGNESIUM OXIDE 400MG TABLET PO SCH (08:39)
[2016-11-18] MEDS: LISINOPRIL 20MG TABLET PO SCH ×2 (08:39→21:25)
[2016-11-18] MEDS: AMLODIPINE 5MG TABLET PO SCH ×2 (08:39→21:24)
[2016-11-18] MEDS: APIXABAN 5 MG TABLET PO SCH ×2 (08:39→16:56)
[2016-11-18] MEDS: LIDOCAINE 5% PATCH TOP SCH ×2 (08:40)
[2016-11-18] MEDS: TERBINAFINE HCL 1% CREAM 30GM TOP SCH ×2 (08:41→16:57)
[2016-11-18 14:31] LABS: PLATELET ESTIMATE NORMAL
[2016-11-18 20:00] VITALS: BP 133/79
[2016-11-18] MEDS: RISPERIDONE 0.5MG TABLET PO SCH (21:25)
[2016-11-18] MEDS: INSULIN DETEMIR UD 100 UNITS/ML SYR SUBCUT SCH (21:26)
[2016-11-18] MEDS: DOCUSATE SODIUM 100MG CAPSULE PO PRN (23:33)
[2016-11-19] MEDS: IPRATROPIUM/ALBUTEROL 0.5-3(2.5)MG/3ML NEB HHN SCH ×4 (02:12→19:56)
[2016-11-19] MEDS: HYDRALAZINE HCL 50MG TABLET PO SCH ×3 (05:51→21:43)
[2016-11-19] MEDS: INSULIN LISPRO 100 UNITS/ML SUBCUT SCH ×4 (05:51→21:00)
[2016-11-19] MEDS: BLOOD SUGAR DIAGNOSTIC STRIP TEST SCH ×4 (05:52→21:46)
[2016-11-19] MEDS: PANTOPRAZOLE 40MG DR TABLET PO SCH (06:00)
[2016-11-19] MEDS: SUCRALFATE 1G TABLET PO SCH ×4 (06:00→21:42)
[2016-11-19 08:00] VITALS: BP 161/86
[2016-11-19] MEDS: MAGNESIUM OXIDE 400MG TABLET PO SCH (09:19)
[2016-11-19] MEDS: AMIODARONE HCL 200 MG TABLET PO SCH ×2 (09:19→21:44)
[2016-11-19] MEDS: APIXABAN 5 MG TABLET PO SCH ×2 (09:20→17:13)
[2016-11-19] MEDS: LISINOPRIL 20MG TABLET PO SCH ×2 (09:20→21:44)
[2016-11-19] MEDS: FUROSEMIDE 40MG TABLET PO SCH ×2 (09:20→17:13)
[2016-11-19] MEDS: CARVEDILOL 25MG TABLET PO SCH ×2 (09:20→21:43)
[2016-11-19] MEDS: AMLODIPINE 5MG TABLET PO SCH ×2 (09:20→21:43)
[2016-11-19] MEDS: SPIRONOLACTONE 25MG TABLET PO SCH (09:21)
[2016-11-19] MEDS: LIDOCAINE 5% PATCH TOP SCH ×2 (09:21→09:22)
[2016-11-19] MEDS: TERBINAFINE HCL 1% CREAM 30GM TOP SCH ×2 (09:21→17:14)
[2016-11-19 20:00] VITALS: BP 156/93
[2016-11-19] MEDS: RISPERIDONE 0.5MG TABLET PO SCH (21:44)
[2016-11-19] MEDS: INSULIN DETEMIR UD 100 UNITS/ML SYR SUBCUT SCH (21:47)
[2016-11-20] MEDS: IPRATROPIUM/ALBUTEROL 0.5-3(2.5)MG/3ML NEB HHN SCH ×4 (02:25→19:59)
[2016-11-20] MEDS: BLOOD SUGAR DIAGNOSTIC STRIP TEST SCH ×4 (06:10→21:00)
[2016-11-20] MEDS: INSULIN LISPRO 100 UNITS/ML SUBCUT SCH ×4 (06:10→22:23)
[2016-11-20] MEDS: SUCRALFATE 1G TABLET PO SCH ×4 (06:11→22:08)
[2016-11-20] MEDS: PANTOPRAZOLE 40MG DR TABLET PO SCH (06:11)
[2016-11-20] MEDS: HYDRALAZINE HCL 50MG TABLET PO SCH ×3 (06:11→22:51)
[2016-11-20 07:19] VITALS: BP 138/85
[2016-11-20] MEDS: TERBINAFINE HCL 1% CREAM 30GM TOP SCH ×2 (09:45→18:00)
[2016-11-20] MEDS: APIXABAN 5 MG TABLET PO SCH ×2 (09:46→16:48)
[2016-11-20] MEDS: CARVEDILOL 25MG TABLET PO SCH ×2 (09:46→22:48)
[2016-11-20] MEDS: SPIRONOLACTONE 25MG TABLET PO SCH (09:47)
[2016-11-20] MEDS: AMIODARONE HCL 200 MG TABLET PO SCH ×2 (09:47→22:09)
[2016-11-20] MEDS: MAGNESIUM OXIDE 400MG TABLET PO SCH (09:47)
[2016-11-20] MEDS: LISINOPRIL 20MG TABLET PO SCH ×2 (09:47→22:49)
[2016-11-20] MEDS: LIDOCAINE 5% PATCH TOP SCH ×2 (09:48→09:49)
[2016-11-20] MEDS: AMLODIPINE 5MG TABLET PO SCH ×2 (09:48→22:11)
[2016-11-20] MEDS: FUROSEMIDE 40MG TABLET PO SCH ×2 (09:48→16:49)
[2016-11-20 19:00] VITALS: BP 131/82
[2016-11-20] MEDS: RISPERIDONE 0.5MG TABLET PO SCH (22:08)
[2016-11-20] MEDS: HYDROCODONE/ACETAMINOPHEN 5/325MG TABLET PO PRN (22:08)
[2016-11-20] MEDS: INSULIN DETEMIR UD 100 UNITS/ML SYR SUBCUT SCH (22:21)
[2016-11-21] MEDS: IPRATROPIUM/ALBUTEROL 0.5-3(2.5)MG/3ML NEB HHN SCH ×4 (02:11→21:14)
[2016-11-21] MEDS: SUCRALFATE 1G TABLET PO SCH ×4 (05:39→22:19)
[2016-11-21] MEDS: BLOOD SUGAR DIAGNOSTIC STRIP TEST SCH ×4 (05:40→21:00)
[2016-11-21] MEDS: INSULIN LISPRO 100 UNITS/ML SUBCUT SCH ×4 (05:40→21:00)
[2016-11-21] MEDS: HYDRALAZINE HCL 50MG TABLET PO SCH ×2 (05:40→15:02)
[2016-11-21] MEDS: PANTOPRAZOLE 40MG DR TABLET PO SCH (06:10)
[2016-11-21 08:00] VITALS: BP 145/92
[2016-11-21] MEDS: MAGNESIUM OXIDE 400MG TABLET PO SCH (09:12)
[2016-11-21] MEDS: APIXABAN 5 MG TABLET PO SCH ×2 (09:12→16:25)
[2016-11-21] MEDS: LISINOPRIL 20MG TABLET PO SCH ×2 (09:12→22:21)
[2016-11-21] MEDS: SPIRONOLACTONE 25MG TABLET PO SCH (09:13)
[2016-11-21] MEDS: FUROSEMIDE 40MG TABLET PO SCH ×2 (09:13→16:25)
[2016-11-21] MEDS: AMIODARONE HCL 200 MG TABLET PO SCH ×2 (09:13→22:20)
[2016-11-21] MEDS: CARVEDILOL 25MG TABLET PO SCH ×2 (09:13→22:20)
[2016-11-21] MEDS: AMLODIPINE 5MG TABLET PO SCH ×2 (09:13→22:20)
[2016-11-21] MEDS: LIDOCAINE 5% PATCH TOP SCH ×2 (09:14)
[2016-11-21] MEDS: TERBINAFINE HCL 1% CREAM 30GM TOP SCH ×2 (12:20→17:19)
[2016-11-21 20:00] VITALS: BP 141/75
[2016-11-21] MEDS: RISPERIDONE 0.5MG TABLET PO SCH (22:19)
[2016-11-21] MEDS: INSULIN DETEMIR UD 100 UNITS/ML SYR SUBCUT SCH (22:50)
[2016-11-22] MEDS: HYDRALAZINE HCL 50MG TABLET PO SCH ×4 (00:15→22:00)
[2016-11-22] MEDS: IPRATROPIUM/ALBUTEROL 0.5-3(2.5)MG/3ML NEB HHN SCH ×4 (02:43→20:52)
[2016-11-22] MEDS: BLOOD SUGAR DIAGNOSTIC STRIP TEST SCH ×4 (06:06→21:00)
[2016-11-22] MEDS: PANTOPRAZOLE 40MG DR TABLET PO SCH (06:06)
[2016-11-22] MEDS: SUCRALFATE 1G TABLET PO SCH ×4 (06:06→22:44)
[2016-11-22 07:12] LABS: HEMOGLOBIN. 9.9 g/dL (14.0-18.0); MEAN CORPUSCULAR HEMOGLOBIN 24.8 pg (28.0-32.0); MEAN CORPUSCULAR VOLUME 77.5 fL (80.0-94.0); MEAN PLATELET VOLUME 8.2 fl (7.4-10.4); PLATELET 213 x1000/uL (130-400); RED CELL DISTRIBUTION WIDTH 21.5 % (11.6-14.6)
[2016-11-22 07:25] LABS: CARBON DIOXIDE 35 mEq/L (21-32); CHLORIDE 102 mEq/L (98-107)
[2016-11-22 08:00] VITALS: BP 133/77
[2016-11-22] MEDS: INSULIN LISPRO 100 UNITS/ML SUBCUT SCH ×4 (09:00→23:02)
[2016-11-22] MEDS: AMLODIPINE 5MG TABLET PO SCH ×2 (09:11→22:45)
[2016-11-22] MEDS: FUROSEMIDE 40MG TABLET PO SCH ×2 (09:11→16:59)
[2016-11-22] MEDS: MAGNESIUM OXIDE 400MG TABLET PO SCH (09:11)
[2016-11-22] MEDS: SPIRONOLACTONE 25MG TABLET PO SCH (09:11)
[2016-11-22] MEDS: LISINOPRIL 20MG TABLET PO SCH ×2 (09:11→22:46)
[2016-11-22] MEDS: APIXABAN 5 MG TABLET PO SCH ×2 (09:12→16:58)
[2016-11-22] MEDS: AMIODARONE HCL 200 MG TABLET PO SCH ×2 (09:12→22:45)
[2016-11-22] MEDS: CARVEDILOL 25MG TABLET PO SCH ×2 (09:12→22:45)
[2016-11-22] MEDS: TERBINAFINE HCL 1% CREAM 30GM TOP SCH ×2 (09:12→16:59)
[2016-11-22] MEDS: LIDOCAINE 5% PATCH TOP SCH ×2 (09:13)
[2016-11-22 13:42] LABS: PLATELET ESTIMATE NORMAL
[2016-11-22 20:00] VITALS: BP 144/88
[2016-11-22] MEDS: RISPERIDONE 0.5MG TABLET PO SCH (22:46)
[2016-11-22] MEDS: INSULIN DETEMIR UD 100 UNITS/ML SYR SUBCUT SCH (23:04)
[2016-11-23] MEDS: HYDROCODONE/ACETAMINOPHEN 5/325MG TABLET PO PRN (02:04)
[2016-11-23] MEDS: IPRATROPIUM/ALBUTEROL 0.5-3(2.5)MG/3ML NEB HHN SCH ×4 (02:27→20:59)
[2016-11-23] MEDS: BLOOD SUGAR DIAGNOSTIC STRIP TEST SCH ×4 (06:03→20:34)
[2016-11-23] MEDS: SUCRALFATE 1G TABLET PO SCH ×4 (06:04→20:32)
[2016-11-23] MEDS: PANTOPRAZOLE 40MG DR TABLET PO SCH (06:05)
[2016-11-23] MEDS: HYDRALAZINE HCL 50MG TABLET PO SCH ×3 (06:05→22:03)
[2016-11-23 06:27] LABS: HEMATOCRIT. 30.9 % (42.0-52.0); HEMOGLOBIN. 9.7 g/dL (14.0-18.0); MEAN CORPUSCULAR HEMOGLOBIN 24.2 pg (28.0-32.0); MEAN CORPUSCULAR VOLUME 76.9 fL (80.0-94.0); MEAN PLATELET VOLUME 8.4 fl (7.4-10.4); PLATELET 223 x1000/uL (130-400); RED BLOOD CELL COUNT 4.02 mill/uL (4.7-6.1); RED CELL DISTRIBUTION WIDTH 21.6 % (11.6-14.6)
[2016-11-23 07:38] LABS: CARBON DIOXIDE 32 mEq/L (21-32); CHLORIDE 100 mEq/L (98-107)
[2016-11-23 08:00] VITALS: BP 132/79
[2016-11-23] MEDS: INSULIN LISPRO 100 UNITS/ML SUBCUT SCH ×4 (09:00→22:05)
[2016-11-23] MEDS: TERBINAFINE HCL 1% CREAM 30GM TOP SCH ×2 (09:03→16:33)
[2016-11-23] MEDS: LIDOCAINE 5% PATCH TOP SCH ×2 (09:07→09:08)
[2016-11-23] MEDS: MAGNESIUM OXIDE 400MG TABLET PO SCH (09:08)
[2016-11-23] MEDS: LISINOPRIL 20MG TABLET PO SCH ×2 (09:08→20:33)
[2016-11-23] MEDS: AMLODIPINE 5MG TABLET PO SCH ×2 (09:08→20:33)
[2016-11-23] MEDS: AMIODARONE HCL 200 MG TABLET PO SCH ×2 (09:09→20:31)
[2016-11-23] MEDS: SPIRONOLACTONE 25MG TABLET PO SCH (09:09)
[2016-11-23] MEDS: APIXABAN 5 MG TABLET PO SCH ×2 (09:09→16:32)
[2016-11-23] MEDS: CARVEDILOL 25MG TABLET PO SCH ×2 (09:09→20:33)
[2016-11-23] MEDS: FUROSEMIDE 40MG TABLET PO SCH ×2 (09:09→16:33)
[2016-11-23] MEDS: ERGOCALCIFEROL 50000UNITS CAPSULE PO SCH (09:09)
[2016-11-23 09:30] VITALS: BP 120/53
[2016-11-23 14:41] LABS: PLATELET ESTIMATE NORMAL
[2016-11-23 15:30] VITALS: BP 153/84
[2016-11-23 20:00] VITALS: BP 129/66
[2016-11-23] MEDS: RISPERIDONE 0.5MG TABLET PO SCH (20:33)
[2016-11-23] MEDS ORDERED: HYDROCODONE/ACETAMINOPHEN 5/325MG TABLET PO PRN (21:30)
[2016-11-23] MEDS ORDERED: ALPRAZOLAM 0.5 MG TABLET PO PRN (21:30)
[2016-11-23] MEDS: INSULIN DETEMIR UD 100 UNITS/ML SYR SUBCUT SCH (22:05)
[2016-11-24] MEDS: IPRATROPIUM/ALBUTEROL 0.5-3(2.5)MG/3ML NEB HHN SCH ×3 (00:51→14:15)
[2016-11-24] MEDS: BLOOD SUGAR DIAGNOSTIC STRIP TEST SCH ×2 (05:50→11:15)
[2016-11-24] MEDS: HYDRALAZINE HCL 50MG TABLET PO SCH ×2 (05:50→14:14)
[2016-11-24] MEDS: SUCRALFATE 1G TABLET PO SCH ×2 (05:50→12:12)
[2016-11-24] MEDS: PANTOPRAZOLE 40MG DR TABLET PO SCH (06:00)
[2016-11-24] MEDS: INSULIN LISPRO 100 UNITS/ML SUBCUT SCH ×2 (07:02→12:14)
[2016-11-24] MEDS: SPIRONOLACTONE 25MG TABLET PO SCH (08:15)
[2016-11-24] MEDS: LISINOPRIL 20MG TABLET PO SCH (08:15)
[2016-11-24] MEDS: AMLODIPINE 5MG TABLET PO SCH (08:15)
[2016-11-24] MEDS: CARVEDILOL 25MG TABLET PO SCH (08:16)
[2016-11-24] MEDS: APIXABAN 5 MG TABLET PO SCH (08:16)
[2016-11-24] MEDS: FUROSEMIDE 40MG TABLET PO SCH (08:17)
[2016-11-24] MEDS: MAGNESIUM OXIDE 400MG TABLET PO SCH (08:17)
[2016-11-24] MEDS: AMIODARONE HCL 200 MG TABLET PO SCH (08:17)
[2016-11-24] MEDS: LIDOCAINE 5% PATCH TOP SCH ×2 (08:18→08:19)
[2016-11-24] MEDS: TERBINAFINE HCL 1% CREAM 30GM TOP SCH (08:18)
[2016-11-24 08:30] VITALS: BP 135/74
[2016-11-24 13:06] VITALS: BP 128/71
== END 2016-11-24 16:40 | disposition home health service (06) | DRG 292 ==
PROVIDERS: ADMIT Physical Medicine & Rehabilitation Spinal Cord Injury Medicine; ATTEND Family Medicine Adult Medicine
PROC: 0HBRXZZ Excision of Toe Nail, External Approach (ICD-10-PCS; principal; 2016-11-10)
PROC: 0HBRXZZ Excision of Toe Nail, External Approach (ICD-10-PCS; 2016-11-10)
PROC: 0HBRXZZ Excision of Toe Nail, External Approach (ICD-10-PCS; 2016-11-10)
PROC: 0HBRXZZ Excision of Toe Nail, External Approach (ICD-10-PCS; 2016-11-10)
PROC: 0HBRXZZ Excision of Toe Nail, External Approach (ICD-10-PCS; 2016-11-10)
PROC: 0HBRXZZ Excision of Toe Nail, External Approach (ICD-10-PCS; 2016-11-10)
PROC: 0HBRXZZ Excision of Toe Nail, External Approach (ICD-10-PCS; 2016-11-10)
PROC: 0HBRXZZ Excision of Toe Nail, External Approach (ICD-10-PCS; 2016-11-10)
PROC: 0HBRXZZ Excision of Toe Nail, External Approach (ICD-10-PCS; 2016-11-10)
PROC: 0HBRXZZ Excision of Toe Nail, External Approach (ICD-10-PCS; 2016-11-10)
DX: I11.0 Hypertensive heart disease with heart failure (principal); E66.2 Morbid (severe) obesity with alveolar hypoventilation; E11.42 Type 2 diabetes mellitus with diabetic polyneuropathy; I27.2 Other secondary pulmonary hypertension; B96.81 Helicobacter pylori [H. pylori] as the cause of diseases classified elsewhere; K92.2 Gastrointestinal hemorrhage, unspecified; Z68.44 Body mass index [BMI] 60.0-69.9, adult; K27.9 Peptic ulcer, site unspecified, unspecified as acute or chronic, without hemorrhage or perforation; B35.1 Tinea unguium; I48.2 Chronic atrial fibrillation; D64.9 Anemia, unspecified; E78.5 Hyperlipidemia, unspecified; F31.9 Bipolar disorder, unspecified; R53.81 Other malaise; I50.33 Acute on chronic diastolic (congestive) heart failure; M17.0 Bilateral primary osteoarthritis of knee; N19 Unspecified kidney failure; B35.3 Tinea pedis; E61.1 Iron deficiency; M75.41 Impingement syndrome of right shoulder; F06.31 Mood disorder due to known physiological condition with depressive features; F41.9 Anxiety disorder, unspecified; L60.3 Nail dystrophy; L60.0 Ingrowing nail; Z79.01 Long term (current) use of anticoagulants; Z87.11 Personal history of peptic ulcer disease; Z91.19 Patient's noncompliance with other medical treatment and regimen; Z80.3 Family history of malignant neoplasm of breast; Z79.899 Other long term (current) drug therapy; Z83.3 Family history of diabetes mellitus; Z80.0 Family history of malignant neoplasm of digestive organs
CPT/HCPCS: 36415; 36600; 71010; 73030; 80048; 80053; 80061; 82306; 82375; 82607; 82746; 82805; 82962; 83036; 83540; 83550; 83735; 84100; 84134; 84153; 84443; 84630; 85025; 92523; 93005; 93306; 93970; 94640; 94660; 94664; 97110; 97116; 97162; 97167; 97530; 97532; 97535; A6261; C1893; J1815; J3420; J7050; J7620; J7626